=== PATIENT | male | born 1945 | race African-American/Black ===

== ENCOUNTER → 2018-02-14 | Outpatient (CLI) | payer MEDICARE | END | disposition home or self-care (01) | LOC: SPEC 12:03 | DX: S99.922D Unspecified injury of left foot, subsequent encounter (principal); X58.XXXD Exposure to other specified factors, subsequent encounter | CPT/HCPCS: 87071; 87075; 87186 ==

== ENCOUNTER → 2018-02-22 | Outpatient (CLI) | payer MEDICARE | END | disposition home or self-care (01) | LOC: PMGWOUND 08:53 | PROVIDERS: ATTEND Emergency Medicine Undersea and Hyperbaric Medicine | DX: I89.0 Lymphedema, not elsewhere classified (principal); M10.9 Gout, unspecified; E21.3 Hyperparathyroidism, unspecified; Z89.421 Acquired absence of other right toe(s); Z87.891 Personal history of nicotine dependence | CPT/HCPCS: 99214; G0463 ==

== ENCOUNTER → 2020-09-23 | Outpatient (CLI) | payer MEDICARE ==
[~2020-09-23] MED LIST: ACET500T68 PO; ALLO100T PO; AMLO-187 PO; ARIP15TA3 PO; ARIP20TA5 PO; ATOR10TA60 PO; DOXY-181 PO; FLUT16SP NS; LEVO5TAB2 PO; LINE100S2 PO; LISI-130 PO; MULT-121 PO; OXYC1TAB15 PO; TRIA15OI TP
--- NOTE | 2020-09-23 17:17 | RAD ---
EXAM: US VENOUS REFLUX. HISTORY: Nonhealing ulcer left ankle. COMPARISON: None. FINDINGS: Grayscale and Doppler analysis of the left lower extremity lesser and greater saphenous sys tems was performed. There is no reflux at the left greater saphenous vein. It measures 5 mm at the saphenofemoral junctio n. There is no reflux at the left lesser saphenous vein. IMPRESSION: 1. The lesser and greater saphenous systems demonstrate no reflux. Electronically signed by: La Patel MD (09/23/2020 5:15 PM) [id number]
== END ==
LOC: US 12:33
PROVIDERS: ATTEND Preventive Medicine Undersea and Hyperbaric Medicine
DX: I87.311 Chronic venous hypertension (idiopathic) with ulcer of right lower extremity (principal); L97.321 Non-pressure chronic ulcer of left ankle limited to breakdown of skin; I89.0 Lymphedema, not elsewhere classified; I10 Essential (primary) hypertension
CPT/HCPCS: 93970

== ENCOUNTER 2020-10-16 12:29 | Inpatient (IN) | payer MEDICARE ==
[~2020-10-16] VITALS: Ht 160 cm; Wt 81.7 kg
[2020-10-16] MEDS ORDERED: VANCOMYCIN PER PHARMACY MC ONE (14:15)
[2020-10-16] MEDS ORDERED: fentaNYL PF VIAL 100 MCG/2 ML VIAL IV PRN (14:15)
[2020-10-16] MEDS ORDERED: PIPERACILLIN/TAZOBACTAM 3.375 GM in IV NORMAL SALINE 50ML 50 ML IV ONE (14:15)
[2020-10-16] MEDS ORDERED: VANCOMYCIN 1.75 GM in IV NORMAL SALINE 500ML BAG 500 ML IV ONE (14:15)
[2020-10-16] MEDS ORDERED: PIPERACILLIN/TAZOBACTAM 4.5 GM in IV NORMAL SALINE 100ML 100 ML IV ONE (14:15)
[2020-10-16] MEDS ORDERED: IV NORMAL SALINE 1000ML BAG 1,000 ML IV ONE (14:15)
--- NOTE | 2020-10-16 14:53 | RAD ---
Left lower extremity venous duplex study Clinical History: Left lower extremity edema Technique: Using a combination of real time ultrasound imaging and color-flow and pulse Doppler imagi ng techniques, including spectral analysis, graded compression and augmentation, duplex evaluation of the deep venous system of the left lower extremity was performed. Multiple images were obtained. Findings: There is no sonographic evidence of deep venous thrombosis involving the visualized deep ve nous structures of the left lower extremity Impression: No evidence of deep venous thrombosis involving the left lower extremity Electronically signed by: Rainer Nicolas MD (10/16/2020 2:50 PM) [id number]
--- NOTE | 2020-10-16 15:31 | RAD ---
Left lower extremity arterial duplex ultrasound 10/16/2020 INDICATION: Left lower extremity wounds. Leg swelling. Comparisons: None. TECHNIQUE: Ultrasound evaluation of the major arteries of the left lower extremity was performed incl uding color Doppler imaging spectral analysis. Blunted monophasic waveforms are seen in left common f emoral artery. Velocities are mildly increased at 190 cm/s. Diffuse atherosclerotic vascular disease. Monophasic waveforms noted in the left superficial femoral artery, mildly elevated velocities throug hout. Monophasic waveforms noted velocities seen left popliteal artery. Monophasic waveforms noted in left anterior tibial, posterior tibial, peroneal arteries. Monophasic waveforms dorsalis pedis arter y. IMPRESSION: Diffuse monophasic waveforms with areas of increased velocity which are nonspecific. No major arterial occlusion below the level of the hip is identified on the left, but given monophasic w aveforms in the left common femoral artery, a hemodynamically significant aortoiliac stenosis may be present. Consider CT angiography for further characterization. Electronically signed by: Rainer Nicolas MD (10/16/2020 3:28 PM) [id number]
[2020-10-16 15:33] LABS: BASO % 1 % (0-3); EOS # 0.2 x10^3/uL (0.0-0.7); EOS % 4 % (0-3); HEMATOCRIT 39.8 % (39.0-53.0); HEMOGLOBIN 13.4 g/dL (13.0-17.5); LYMPH % 22 % (24-48); MEAN CORPUSCULAR HEMOGLOBIN 26 pg (25-35); MEAN CORPUSCULAR HGB CONC 34 g/dL (31-37); MEAN CORPUSCULAR VOLUME 78 fL (79-100); MONO # 0.4 x10^3/uL (0.0-1.1); MONO % 9 % (0-9); NEUT % 65 % (31-73); PLATELET COUNT 141 x10^3/uL (140-400); RED BLOOD COUNT 5.12 x10^6/uL (4.30-5.70); RED CELL DISTRIBUTION WIDTH 14.5 % (11.5-14.5); WHITE BLOOD COUNT 4.6 x10^3/uL (4.0-11.0)
[2020-10-16 15:43] LABS: CALCIUM 10.3 mg/dL (8.5-10.1); CREATININE 1.1 mg/dL (0.7-1.3); POTASSIUM 4.1 mmol/L (3.5-5.1)
[2020-10-16 16:00] LABS: ALBUMIN 2.9 g/dL (3.4-5.0); ALBUMIN/GLOBULIN RATIO 0.7 (1.0-1.7); C-REACTIVE PROTEIN 36.2 mg/L (0-3.3); TOTAL BILIRUBIN 0.2 mg/dL (0.2-1.0); TOTAL PROTEIN 6.8 g/dL (6.4-8.2)
[2020-10-16] MEDS ORDERED: CONTRAST GIVEN. MC PRN ×2 (16:15→16:30)
[2020-10-16] MEDS ORDERED: IOHEXOL 350 MG/ML 100 ML VIAL. IV ONE ×2 (16:15→16:30)
--- NOTE | 2020-10-16 17:04 | RAD ---
Exam: CT left lower extremity with contrast INDICATION: Left lower extremity swelling and redness TECHNIQUE: Sequential axial images through the left lower extremity obtained following the administra tion of 100 mL of Isovue-370 IV contrast. Sagittal and coronal reformatted images were reconstructed from the axial data and reviewed. 3-D reformatted images were reconstructed from the axial data and r eviewed. Exposure: One or more of the following in the visualized dose reduction techniques were utilized for this examination: 1. Automated exposure control 2. Adjustment of the MA and/or KV according to patient size 3. Use of iterative of reconstructive technique Comparisons: Ultrasound same day FINDINGS: Visualized intrapelvic structures are unremarkable. No suspicious osseous lesions or acute fractures. Left external iliac artery is patent. Left common femoral artery is patent. Left profunda artery is p atent. Left SFA is patent. Minimal plaque at the left popliteal artery which is patent. Anterior tibial, posterior tibial and pe roneal arteries into the level of the ankle without stenosis or plaque identified. There is skin thickening and edema involving the lower leg diffusely greatest at the level of the ank le. IMPRESSION: 1. No flow-limiting stenosis identified in the left lower extremity three-vessel runoff to the level of the ankle. 2. Diffuse soft tissue edema and skin thickening at the lower leg. Correlate for cellulitis Electronically signed by: Anand Hdez MD (10/16/2020 5:02 PM) [facility]
--- NOTE | 2020-10-16 17:56 | PHYS DOC ---
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 Patient states he has had cellulitis to the left lower extremity for 2 months. He states he was on Augmentin in September and recently used linezolid with no improvement. Patient states there is increased redness and swelling as well as weeping. Denies any fever, nausea vomiting. Review of Systems: Review of Systems: Constitutional: Denies fever or chills. [] Eyes: Denies change in visual acuity. [] HENT: Denies nasal congestion or sore throat. [] Respiratory: Denies cough or shortness of breath. [] Cardiovascular: Denies chest pain or edema. [] GI: Denies abdominal pain, nausea, vomiting, bloody stools or diarrhea. [] : Denies dysuria. [] Musculoskeletal: Denies back pain or joint pain. [] Integument: Reports worsening cellulitis of the left lower extremity Neurologic: Denies headache, focal weakness or sensory changes. [] Psychiatric: Denies depression or anxiety. [] Heart Score: C/O Chest Pain: N/A Risk Factors: Risk Factors: DM, Current or recent (<one month) smoker, HTN, HLP, family history of CAD, obesity. Risk Scores: Score 0 - 3: 2.5% MACE over next 6 weeks - Discharge Home Score 4 - 6: 20.3% MACE over next 6 weeks - Admit for Clinical Observation Score 7 - 10: 72.7% MACE over next 6 weeks - Early Invasive Strategies Current Medications: Current Medications Medications (Trade) Dose Ordered Sig/Yolie Start Time Stop Time Status Last Admin Dose Admin Fentanyl Citrate (Fentanyl 2ml Vial) 50 mcg PRN Q15MIN PRN 10/16/20 14:15 10/17/20 14:14 10/16/20 15:46 50 MCG Info (CONTRAST GIVEN -- Rx MONITORING) 1 each PRN DAILY PRN 10/16/20 16:30 10/18/20 16:29 Iohexol (Omnipaque 350 Mg/ml) 90 ml 1X ONCE 10/16/20 16:30 10/16/20 16:31 DC Piperacillin Sod/ Tazobactam Sod 3.375 gm/Sodium Chloride 50 ml @ 100 mls/hr 1X ONCE 10/16/20 14:15 10/16/20 14:44 DC 10/16/20 15:46 100 MLS/HR Piperacillin Sod/ Tazobactam Sod 4.5 gm/Sodium Chloride 100 ml @ 200 mls/hr 1X ONCE 10/16/20 14:15 10/16/20 14:44 UNV Sodium Chloride 1,000 ml @ 1,000 mls/hr 1X ONCE 10/16/20 14:15 10/16/20 15:14 DC 10/16/20 15:47 1,000 MLS/HR Vancomycin HCl (Vanco Per Pharmacy) 1 each 1X ONCE 10/16/20 14:15 10/16/20 14:16 DC Vancomycin HCl 1.75 gm/Sodium Chloride 500 ml @ 250 mls/hr 1X ONCE 10/16/20 14:15 10/16/20 16:14 DC 10/16/20 16:41 250 MLS/HR Allergies: Allergies: Allergies Coded Allergies Type Severity Reaction Last Updated Verified ibuprofen Allergy Unknown 10/16/20 Yes levofloxacin Allergy Unknown 10/16/20 Yes Physical Exam: PE: Constitutional: Well developed, well nourished, no acute distress, non-toxic appearance. [] HENT: Normocephalic, atraumatic, bilateral external ears normal, oropharynx moist, no oral exudates, nose normal. [] Eyes: PERRLA, EOMI, conjunctiva normal, no discharge. [] Neck: Normal range of motion, no tenderness, supple, no stridor. [] Cardiovascular:Heart rate regular rhythm, no murmur [] Lungs & Thorax: Bilateral breath sounds clear to auscultation [] Abdomen: Bowel sounds normal, soft, no tenderness, no masses, no pulsatile masses. [] Skin: Left lower extremity with chronic lymphedema type swelling, there is cellulitis from the luke to the ankle. The luke is weeping clear drainage. Back: No tenderness, no CVA tenderness. [] Extremities: No tenderness, no cyanosis, no clubbing, ROM intact, no edema. [] Neurologic: Alert and oriented X 3, normal motor function, normal sensory function, no focal deficits noted. [] Psychologic: Affect normal, judgement normal, mood normal. [] Current Patient Data: Labs: Laboratory Tests Test 10/16/20 14:35 10/16/20 15:15 SARS-CoV-2 Antigen (Rapid) Negative (NEGATIVE) White Blood Count 4.6 x10^3/uL (4.0-11.0) Red Blood Count 5.12 x10^6/uL (4.30-5.70) Hemoglobin 13.4 g/dL (13.0-17.5) Hematocrit 39.8 % (39.0-53.0) Mean Corpuscular Volume 78 fL (79-100) L Mean Corpuscular Hemoglobin 26 pg (25-35) Mean Corpuscular Hemoglobin Concent 34 g/dL (31-37) Red Cell Distribution Width 14.5 % (11.5-14.5) Platelet Count 141 x10^3/uL (140-400) Neutrophils (%) (Auto) 65 % (31-73) Lymphocytes (%) (Auto) 22 % (24-48) L Monocytes (%) (Auto) 9 % (0-9) Eosinophils (%) (Auto) 4 % (0-3) H Basophils (%) (Auto) 1 % (0-3) Neutrophils # (Auto) 3.0 x10^3/uL (1.8-7.7) Lymphocytes # (Auto) 1.0 x10^3/uL (1.0-4.8) Monocytes # (Auto) 0.4 x10^3/uL (0.0-1.1) Eosinophils # (Auto) 0.2 x10^3/uL (0.0-0.7) Basophils # (Auto) 0.0 x10^3/uL (0.0-0.2) Erythrocyte Sedimentation Rate 34 (0-15) H Sodium Level 145 mmol/L (136-145) Potassium Level 4.1 mmol/L (3.5-5.1) Chloride Level 110 mmol/L (98-107) H Carbon Dioxide Level 25 mmol/L (21-32) Anion Gap 10 (6-14) Blood Urea Nitrogen 25 mg/dL (8-26) Creatinine 1.1 mg/dL (0.7-1.3) Estimated GFR (Cockcroft-Gault) 79.0 BUN/Creatinine Ratio 23 (6-20) H Glucose Level 147 mg/dL (70-99) H Lactic Acid Level 2.7 mmol/L (0.4-2.0) H Calcium Level 10.3 mg/dL (8.5-10.1) H Total Bilirubin 0.2 mg/dL (0.2-1.0) Aspartate Amino Transferase (AST) 22 U/L (15-37) Alanine Aminotransferase (ALT) 39 U/L (16-63) Alkaline Phosphatase 83 U/L (46-116) C-Reactive Protein, Quantitative 36.2 mg/L (0-3.3) H Total Protein 6.8 g/dL (6.4-8.2) Albumin 2.9 g/dL (3.4-5.0) L Albumin/Globulin Ratio 0.7 (1.0-1.7) L Procalcitonin < 0.10 ng/mL (0.00-0.10) Laboratory Tests 10/16/20 15:15 Laboratory Tests 10/16/20 15:15 Vital Signs: Vital Signs Date Time Temp Pulse Resp B/P (MAP) Pulse Ox O2 Delivery O2 Flow Rate FiO2 10/16/20 15:46 16 98 Room Air 10/16/20 14:01 98.6 103 153/83 98.6 EKG: EKG: [] Radiology/Procedures: Radiology/Procedures: []PROCEDURE: DUPLEX LOWER EXT ARTERIAL LEFT Left lower extremity arterial duplex ultrasound 10/16/2020 INDICATION: Left lower extremity wounds. Leg swelling. Comparisons: None. TECHNIQUE: Ultrasound evaluation of the major arteries of the left lower extremity was performed including color Doppler imaging spectral analysis. Blunted monophasic waveforms are seen in left common femoral artery. Velocities are mildly increased at 190 cm/s. Diffuse atherosclerotic vascular disease. Monophasic waveforms noted in the left superficial femoral artery, mildly elevated velocities throughout. Monophasic waveforms noted velocities seen left popliteal artery. Monophasic waveforms noted in left anterior tibial, posterior tibial, peroneal arteries. Monophasic waveforms dorsalis pedis artery. IMPRESSION: Diffuse monophasic waveforms with areas of increased velocity which are nonspecific. No major arterial occlusion below the level of the hip is identified on the left, but given monophasic waveforms in the left common femoral artery, a hemodynamically significant aortoiliac stenosis may be present. Consider CT angiography for further characterization. Electronically signed by: Rainer Pitts MD (10/16/2020 3:28 PM) [id number] DICTATED and SIGNED BY: RAINER PITTS MD DATE: 10/16/20 [id number] 0 PROCEDURE: VENOUS LOWER EXTREMITY LEFT Left lower extremity venous duplex study Clinical History: Left lower extremity edema Technique: Using a combination of real time ultrasound imaging and color-flow and pulse Doppler imaging techniques, including spectral analysis, graded compression and augmentation, duplex evaluation of the deep venous system of the left lower extremity was performed. Multiple images were obtained. Findings: There is no sonographic evidence of deep venous thrombosis involving the visualized deep venous structures of the left lower extremity Impression: No evidence of deep venous thrombosis involving the left lower extremity Electronically signed by: Rianer Pitts MD (10/16/2020 2:50 PM) [id number] DICTATED and SIGNED BY: RAINER PITTS MD DATE: 10/16/20 [id number] 0 PROCEDURE: CT ANGIO LOWER EXTREMITY LEFT Exam: CT left lower extremity with contrast INDICATION: Left lower extremity swelling and redness TECHNIQUE: Sequential axial images through the left lower extremity obtained following the administration of 100 mL of Isovue-370 IV contrast. Sagittal and coronal reformatted images were reconstructed from the axial data and reviewed. 3-D reformatted images were reconstructed from the axial data and reviewed. Exposure: One or more of the following in the visualized dose reduction techniques were utilized for this examination: 1. Automated exposure control 2. Adjustment of the MA and/or KV according to patient size 3. Use of iterative of reconstructive technique Comparisons: Ultrasound same day FINDINGS: Visualized intrapelvic structures are unremarkable. No suspicious osseous lesions or acute fractures. Left external iliac artery is patent. Left common femoral artery is patent. Left profunda artery is patent. Left SFA is patent. Minimal plaque at the left popliteal artery which is patent. Anterior tibial, posterior tibial and peroneal arteries into the level of the ankle without stenosis or plaque identified. There is skin thickening and edema involving the lower leg diffusely greatest at the level of the ankle. IMPRESSION: 1. No flow-limiting stenosis identified in the left lower extremity three- vessel runoff to the level of the ankle. 2. Diffuse soft tissue edema and skin thickening at the lower leg. Correlate for cellulitis Electronically signed by: Anand Gaines MD (10/16/2020 5:02 PM) [facility] DICTATED and SIGNED BY: ANAND GAINES MD DATE: 10/16/20 [id number] 0 Course & Med Decision Making: Course & Med Decision Making Pertinent Labs and Imaging studies reviewed. (See chart for details) Patient is a 74-year-old male presenting to the ED today for worsening cellulitis to the left lower extremity. Patient was already on Augmentin last m onth as well as Zyvox. Tetanus is up-to-date CBC with a normal WBC, CMP with nothing acute. Sed rate 34, CRP 3 36.2. Lactic 2.7. Patient was given IV fluids in the ED, started on Zosyn and vancomycin. Spoke with Dr. Wilburn who accepted patient for admission Dragon Disclaimer: Alesha Disclaimer: This electronic medical record was generated, in whole or in part, using a voice recognition dictation system. Departure Departure Impression: Primary Impression: Left leg cellulitis Disposition: ADMITTED INPATIENT Condition: STABLE Referrals: YOSEF PUENTES MD (PCP) ROSIE GHOSH APRN Oct 16, 2020 17:56
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
[2020-10-16] MEDS ORDERED: fentaNYL PF VIAL 100 MCG/2 ML VIAL IVP PRN (18:45)
[2020-10-16] MEDS ORDERED: ACETAMINOPHEN 325 MG TABLET. PO PRN (18:45)
[2020-10-16] MEDS ORDERED: ONDANSETRON PF 4 MG/2 ML VIAL. IVP PRN (18:45)
[2020-10-16 20:45] VITALS: BP 127/85
[2020-10-16] MEDS ORDERED: IV 1/2 NORMAL SALINE 1,000 ML IV ONE (20:45)
[2020-10-16] MEDS ORDERED: ALBUTEROL SULFATE 2.5 MG/3 ML NEBU. NEB PRN (21:00)
[2020-10-16 23:00] VITALS: BP 142/70
[2020-10-16] MEDS: HEPARIN for SUB-Q USE 5,000 UNIT/ML VIAL. SQ SCH (23:05)
[2020-10-16] MEDS ORDERED: ATOR10TA60 PO (23:51)
[2020-10-16] MEDS ORDERED: LEVO5TAB2 PO (23:51)
[2020-10-16] MEDS ORDERED: LISI-130 PO (23:51)
[2020-10-16] MEDS ORDERED: ALLO100T PO (23:51)
[2020-10-16] MEDS ORDERED: ACET500T68 PO (23:51)
[2020-10-16] MEDS ORDERED: ARIP20TA5 PO (23:51)
[2020-10-16] MEDS ORDERED: AMLO-187 PO (23:51)
[2020-10-17] MEDS ORDERED: MULT-121 PO
[2020-10-17] MEDS ORDERED: DOXY-181 PO
[2020-10-17] MEDS ORDERED: TRIA15OI TP
[2020-10-17] MEDS ORDERED: OXYC1TAB15 PO
[2020-10-17] MEDS ORDERED: FLUT16SP NS
[2020-10-17] MEDS ORDERED: LINE100S2 PO
[2020-10-17 03:00] VITALS: BP 114/63
[2020-10-17] MEDS: HEPARIN for SUB-Q USE 5,000 UNIT/ML VIAL. SQ SCH ×3 (05:47→22:39)
[2020-10-17 07:00] VITALS: BP 147/71
[2020-10-17 07:51] LABS: BASO % 1 % (0-3); EOS # 0.2 x10^3/uL (0.0-0.7); EOS % 4 % (0-3); HEMATOCRIT 34.6 % (39.0-53.0); HEMOGLOBIN 11.7 g/dL (13.0-17.5); LYMPH # 0.8 x10^3/uL (1.0-4.8); LYMPH % 16 % (24-48); MEAN CORPUSCULAR HEMOGLOBIN 26 pg (25-35); MEAN CORPUSCULAR HGB CONC 34 g/dL (31-37); MEAN CORPUSCULAR VOLUME 77 fL (79-100); MONO # 0.5 x10^3/uL (0.0-1.1); MONO % 11 % (0-9); NEUT # 3.4 x10^3/uL (1.8-7.7); NEUT % 69 % (31-73); PLATELET COUNT 113 x10^3/uL (140-400); RED BLOOD COUNT 4.49 x10^6/uL (4.30-5.70); RED CELL DISTRIBUTION WIDTH 14.6 % (11.5-14.5); WHITE BLOOD COUNT 4.9 x10^3/uL (4.0-11.0)
[2020-10-17 08:04] LABS: CALCIUM 9.5 mg/dL (8.5-10.1); CREATININE 0.8 mg/dL (0.7-1.3); POTASSIUM 4.2 mmol/L (3.5-5.1)
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
[2020-10-17 11:00] VITALS: BP 139/72
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
[2020-10-17] MEDS: traMADol 50 MG TABLET PO PRN (13:18)
--- NOTE | 2020-10-17 13:28 | NUR ---
SS following for discharge planning. SS reviewed pt chart and discussed with pt RN. Pt is from home and is currently on room air. COVID19 negative. Wound care and ID consulted. PT/OT ordered. SS will continue to follow for discharge planning.
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
[2020-10-17 15:00] VITALS: BP 129/61
[2020-10-17] MEDS ORDERED: TRIAMCINOLONE ACETONIDE 0.1% TOPICAL OINTMENT 15GM TUBE. TP PRN (16:15)
[2020-10-17] MEDS ORDERED: oxyCODONE/APAP 5/325 1 TAB TABLET PO PRN (16:15)
[2020-10-17] MEDS ORDERED: ACETAMINOPHEN 500 MG TABLET PO PRN (16:15)
[2020-10-17] MEDS: ALLOPURINOL 100 MG TABLET. PO SCH (17:26)
[2020-10-17] MEDS: LISINOPRIL 20 MG TABLET PO SCH (17:26)
[2020-10-17 19:00] VITALS: BP 127/67
[2020-10-17] MEDS ORDERED: ARIPiprazole 5 MG TABLET PO SCH (21:00)
[2020-10-17] MEDS ORDERED: CETIRIZINE HCL 10 MG TABLET. PO SCH (21:00)
[2020-10-17] MEDS ORDERED: FLUTICASONE 50MCG/NASAL SPRAY 16GM BOTTLE. NS SCH (21:00)
[2020-10-17] MEDS: ATORVASTATIN CALCIUM 10 MG TABLET. PO SCH (22:28)
[2020-10-17 23:00] VITALS: BP 141/71
[2020-10-18] MEDS ORDERED: CETIRIZINE HCL 10 MG TABLET. PO PRN (01:15)
[2020-10-18] MEDS ORDERED: FLUTICASONE 50MCG/NASAL SPRAY 16GM BOTTLE. NS PRN (01:15)
[2020-10-18] MEDS ORDERED: ARIP15TA3 PO (01:19)
[2020-10-18 03:00] VITALS: BP 138/68
[2020-10-18] MEDS: HEPARIN for SUB-Q USE 5,000 UNIT/ML VIAL. SQ SCH ×3 (06:38→21:31)
[2020-10-18 07:00] VITALS: BP 132/64
[2020-10-18] MEDS: MULTIVITAMIN with MINERAL TABLET. PO SCH (09:04)
[2020-10-18] MEDS: LISINOPRIL 20 MG TABLET PO SCH (09:04)
[2020-10-18] MEDS: ALLOPURINOL 100 MG TABLET. PO SCH (09:05)
--- NOTE | 2020-10-18 10:30 | PDOC ---
Infectious Disease Note Subjective Subjective pt is feeling good, leakage has decreased ROS ROS no n/v/d/sob Vital Sign Vital Signs Vital Signs Date Time Temp Pulse Resp B/P (MAP) Pulse Ox O2 Delivery O2 Flow Rate FiO2 10/18/20 09:05 67 132/64 10/18/20 07:00 97.7 17 97 Room Air 97.7 10/17/20 07:00 Physical Exam PHYSICAL EXAM GENERAL: Alert, oriented gentleman, not in distress. VITAL SIGNS: Stable, afebrile. HEENT: NAD. NECK: Supple, no JVP, no lymphadenopathy. LUNGS: Clear. HEART: S1, S2 regular. ABDOMEN: Soft, nontender, no organomegaly. 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 Left lower extremity has extensive scar tissue into the thigh, knee and just below that and further below that the leg is almost like degloving with raw skin, but very clean red healthy granulation tissue all throughout the remaining leg. The patient does have what appears to be the chronic deformed and swollen toes like verruca lesions. It may have been just because of the chronic stasis, but it could be also possible that he may have mycetoma foot like appearance. NEUROLOGIC: The patient is alert, awake, and appropriate. No focal neurologic deficit. Labs Micro Microbiology 10/16/20 Blood Culture - Preliminary, Resulted NO GROWTH AFTER 1 DAY Objective Assessment IMPRESSION: Extensive superficial skin loss into the left leg, there are no signs of infection. I think it is all mechanical issue. There is no infection. The patient has venous insufficiency and scarring causing probably lymphatic compromise, hence continues to leak and leaking is not allowing him to heal. The patient needs to elevate the leg higher than the heart to be able to resolve this. Unfortunately, he cannot do it at home as he lives alone and he has to fetch for everything. I would recommend him going to the rehab, which he agrees. He stays in the rehab and his needs are taken care of and a constant leg elevation, he can walk, but no sitting except to eat and the rest of the time the leg should be above heart and that should allow him to stop leaking and that should heal his ulcers. The toe area with mycetoma look, the biopsy can be done to find out what really does not appear to be bacterial infection. The HPV like wart is possible versus fungal infection is possible, although just some again mechanical issue with the venous insufficiency and prolonged stasis. At this stage, I do not see the need for any antibiotics. The patient can be discharged and instead of just Kerlix, they should use Vaseline gauze on to the area to be able to avoid the new skin that Kerlix is taking away when it gets dry. Plan Plan of Care leg elevation no need for antibiotics ok to d/c to rehab GLORIA PAZ MD Oct 18, 2020 10:30
--- NOTE | 2020-10-18 10:49 | PDOC ---
[facility] PROGRESS NOTE Date of Service DOS: DATE: 10/18/20 TIME: 10:44 Chief Complaint Chief Complaint Left lower extremity cellulitis Lactic Acidosis Microcytosis Hypercalcemia Asthma Hyperlipidemia Hypertension Gout History of Present Illness History of Present Illness 10/17: Mr. Weiner was seen and evaluated in his room today. We discussed his disposition with his nurse and reviewed the patient's chart. 10/18: Mr. Weiner was examined and seen this morning in his room. We discussed is current disposition with his nurse and reviewed his chart. I discussed with Mr. Weiner that we are awaiting input from both Infectious Disease and Wound Care. Vitals/I&O Vitals/I&O: Vital Signs Date Time Temp Pulse Resp B/P (MAP) Pulse Ox O2 Delivery O2 Flow Rate FiO2 10/18/20 09:05 67 132/64 10/18/20 08:05 Room Air 10/18/20 07:00 97.7 17 97 97.7 10/17/20 07:00 I & O 10/17/20 10/17/20 10/18/20 15:00 23:00 07:00 Intake Total 0 ml 0 ml Output Total 250 ml Balance -250 ml 0 ml 0 ml Physical Exam Physical Exam: GENERAL: Alert, oriented gentleman, not in distress. VITAL SIGNS: Stable, afebrile. HEENT: NAD. NECK: Supple, no JVP, no lymphadenopathy. LUNGS: Clear. HEART: S1, S2 regular. ABDOMEN: Soft, nontender, no organomegaly. 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 Left lower extremity has extensive scar tissue into the thigh, knee and just below that and further below that the leg is almost like degloving with raw skin, but very clean red healthy granulation tissue all throughout the remaining leg. The patient does have what appears to be the chronic deformed and swollen toes like verruca lesions. It may have been just because of the chronic stasis, but it could be also possible that he may have mycetoma foot like appearance. NEUROLOGIC: The patient is alert, awake, and appropriate. No focal neurologic deficit. General: Alert, Oriented X3, Cooperative, mild distress Heart: Regular rate, No murmurs Lungs: Clear Abdomen: Normal bowel sounds, No tenderness, No hepatosplenomegaly, No masses Extremities: No clubbing, Other (Edema left lower extremity contusion. Extensive vásquez to of her left leg and weepiness: Lower extremity from mid calf to ankle. Right PCN site fungating weeping of serous fluid.) Review of Systems Review of Systems: No Headache No Fever Assessment and Plan Assessmemt and Plan Problems Medical Problems: (1) Left leg cellulitis Status: Acute Assessment: 1. Left lower extremity cellulitis 2. Lactic Acidosis 3. Microcytosis 4. Hypercalcemia 5. Asthma 6. Hyperlipidemia 7. Hypertension 8. Gout Plan 1. Await input from Infectious Disease and Wound Care 2. FEN - Regular Diet 3. Continue DVT Prophylaxis (Heparin) 4. Full Code 5. Continue Wound Care 6. Keep Foot Elevated Comment Review of Relevant I have reviewed the following items cholo (where applicable) has been applied. Medications: Current Medications Medications (Trade) Dose Ordered Sig/Yolie Route PRN Reason Start Time Stop Time Status Last Admin Dose Admin Allopurinol (Zyloprim) 200 mg DAILY PO 10/17/20 17:00 10/18/20 09:05 Amlodipine Besylate (Norvasc) 10 mg DAILY PO 10/17/20 17:00 10/18/20 09:05 Atorvastatin Calcium (Lipitor) 10 mg QHS PO 10/17/20 21:00 10/17/20 22:28 Lisinopril (Prinivil) 40 mg DAILY PO 10/17/20 17:00 10/18/20 09:04 Aripiprazole (Abilify) 20 mg QHS PO 10/17/20 21:00 10/18/20 01:21 DC 10/17/20 22:28 Multivitamins (Thera M Plus) 1 tab DAILY PO 10/18/20 09:00 10/18/20 09:04 Justifications for Admission Other Justification BRIGIDO GU III DO Oct 18, 2020 10:49
[2020-10-18 11:00] VITALS: BP 134/63
[2020-10-18 15:00] VITALS: BP 134/60
[2020-10-18 19:00] VITALS: BP 138/63
[2020-10-18] MEDS: ATORVASTATIN CALCIUM 10 MG TABLET. PO SCH (21:24)
[2020-10-18] MEDS: ARIPiprazole 5 MG TABLET PO SCH (21:25)
[2020-10-18 23:00] VITALS: BP 121/60
[2020-10-19 03:00] VITALS: BP 120/60
[2020-10-19] MEDS: HEPARIN for SUB-Q USE 5,000 UNIT/ML VIAL. SQ SCH ×3 (06:20→20:47)
[2020-10-19 07:00] VITALS: BP 128/69
[2020-10-19] MEDS: MULTIVITAMIN with MINERAL TABLET. PO SCH (09:26)
[2020-10-19] MEDS: ALLOPURINOL 100 MG TABLET. PO SCH (09:26)
[2020-10-19] MEDS: LISINOPRIL 20 MG TABLET PO SCH (09:26)
[2020-10-19 11:34] VITALS: BP 110/56
--- NOTE | 2020-10-19 13:00 | PDOC ---
Infectious Disease Note Subjective Subjective pt is feeling good, leakage has decreased ROS ROS no n/v/d/sob Vital Sign Vital Signs Vital Signs Date Time Temp Pulse Resp B/P (MAP) Pulse Ox O2 Delivery O2 Flow Rate FiO2 10/19/20 11:34 98.3 71 20 110/56 (74) 99 Room Air 98.3 Physical Exam PHYSICAL EXAM GENERAL: Alert, oriented gentleman, not in distress. VITAL SIGNS: Stable, afebrile. HEENT: NAD. NECK: Supple, no JVP, no lymphadenopathy. LUNGS: Clear. HEART: S1, S2 regular. ABDOMEN: Soft, nontender, no organomegaly. 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 Left lower extremity has extensive scar tissue into the thigh, knee and just below that and further below that the leg is almost like degloving with raw skin, but very clean red healthy granulation tissue all throughout the remaining leg. The patient does have what appears to be the chronic deformed and swollen toes like verruca lesions. It may have been just because of the chronic stasis, but it could be also possible that he may have mycetoma foot like appearance. NEUROLOGIC: The patient is alert, awake, and appropriate. No focal neurologic deficit. Labs Micro Microbiology 10/16/20 Blood Culture - Preliminary, Resulted NO GROWTH AFTER 1 DAY Objective Assessment IMPRESSION: Extensive superficial skin loss into the left leg, there are no signs of infection. I think it is all mechanical issue. There is no infection. The patient has venous insufficiency and scarring causing probably lymphatic compromise, hence continues to leak and leaking is not allowing him to heal. The patient needs to elevate the leg higher than the heart to be able to resolve this. Unfortunately, he cannot do it at home as he lives alone and he has to fetch for everything. I would recommend him going to the rehab, which he agrees. He stays in the rehab and his needs are taken care of and a constant leg elevation, he can walk, but no sitting except to eat and the rest of the time the leg should be above heart and that should allow him to stop leaking and that should heal his ulcers. The toe area with mycetoma look, the biopsy can be done to find out what really does not appear to be bacterial infection. The HPV like wart is possible versus fungal infection is possible, although just some again mechanical issue with the venous insufficiency and prolonged stasis. Plan Plan of Care leg elevation I do not see the need for any antibiotics. The patient can be discharged and instead of just Kerlix, they should use Vaseline gauze on to the area to be able to avoid the new skin that Kerlix is taking away when it gets dry. GLORIA PAZ MD Oct 19, 2020 13:00
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
[2020-10-19 15:00] VITALS: BP 140/59
[2020-10-19 19:00] VITALS: BP 104/48
[2020-10-19] MEDS: ARIPiprazole 5 MG TABLET PO SCH (20:46)
[2020-10-19] MEDS: ATORVASTATIN CALCIUM 10 MG TABLET. PO SCH (20:47)
[2020-10-19 23:00] VITALS: BP 119/56
[2020-10-19] MEDS: traMADol 50 MG TABLET PO PRN (23:04)
[2020-10-20 03:00] VITALS: BP 103/55
[2020-10-20] MEDS: HEPARIN for SUB-Q USE 5,000 UNIT/ML VIAL. SQ SCH ×2 (05:35→13:32)
[2020-10-20 07:00] VITALS: BP 131/66
[2020-10-20] MEDS: ALLOPURINOL 100 MG TABLET. PO SCH (09:27)
[2020-10-20] MEDS: LISINOPRIL 20 MG TABLET PO SCH (09:27)
[2020-10-20] MEDS: MULTIVITAMIN with MINERAL TABLET. PO SCH (09:27)
[2020-10-20 11:00] VITALS: BP 136/75
[2020-10-20] MEDS ORDERED: OXYC1TAB15 PO (11:07)
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
--- NOTE | 2020-10-20 13:15 | PDOC ---
Infectious Disease Note Subjective Subjective pt is feeling good, leakage has decreased Vital Sign Vital Signs Vital Signs Date Time Temp Pulse Resp B/P (MAP) Pulse Ox O2 Delivery O2 Flow Rate FiO2 10/20/20 11:00 97.8 75 18 136/75 (95) 95 97.8 10/20/20 08:00 Room Air 10/19/20 19:00 3.0 Physical Exam PHYSICAL EXAM GENERAL: Alert, oriented gentleman, not in distress. VITAL SIGNS: Stable, afebrile. HEENT: NAD. NECK: Supple, no JVP, no lymphadenopathy. LUNGS: Clear. HEART: S1, S2 regular. ABDOMEN: Soft, nontender, no organomegaly. 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 Left lower extremity has extensive scar tissue into the thigh, knee and just below that and further below that the leg is almost like degloving with raw skin, but very clean red healthy granulation tissue all throughout the remaining leg. The patient does have what appears to be the chronic deformed and swollen toes like verruca lesions. It may have been just because of the chronic stasis, but it could be also possible that he may have mycetoma foot like appearance. NEUROLOGIC: The patient is alert, awake, and appropriate. No focal neurologic deficit. Labs Lab Laboratory Tests Test 10/20/20 07:34 Glucose (Fingerstick) 93 mg/dL (70-99) Micro Microbiology 10/16/20 Blood Culture - Preliminary, Resulted NO GROWTH AFTER 1 DAY Objective Assessment IMPRESSION: Extensive superficial skin loss into the left leg, there are no signs of infection. I think it is all mechanical issue. There is no infection. The patient has venous insufficiency and scarring causing probably lymphatic compromise, hence continues to leak and leaking is not allowing him to heal. The patient needs to elevate the leg higher than the heart to be able to resolve this. Unfortunately, he cannot do it at home as he lives alone and he has to fetch for everything. I would recommend him going to the rehab, which he agrees. He stays in the rehab and his needs are taken care of and a constant leg elevation, he can walk, but no sitting except to eat and the rest of the time the leg should be above heart and that should allow him to stop leaking and that should heal his ulcers. The toe area with mycetoma look, the biopsy can be done to find out what really does not appear to be bacterial infection. The HPV like wart is possible versus fungal infection is possible, although just some again mechanical issue with the venous insufficiency and prolonged stasis. Plan Plan of Care Monitor off antibiotics Leg elevation Cont local care GLORIA PAZ MD Oct 20, 2020 13:15
--- NOTE | 2020-10-20 16:40 | NUR ---
Discharge Note: ANN PHELAN [address] [place] [address] Discharge instructions and discharge home medications reviewed with Patient and a copy given. All questions have been answered and understanding verbalized. The following instructions and handouts were given: f/u with pcp within two weeks. Continue to go to [facility] wound care as scheduled Discontinued lines and drains: Peripheral IV intact. Patient discharged to Home w/services with Self via Wheelchair by [employer].
== END 2020-10-20 16:40 | disposition home health service (06) | DRG 603 ==
LOC: ER 12:29 → 5 SOUTH 19:01 → ED HOLD 19:01 → 5 SOUTH 20:27
PROVIDERS: ADMIT Internal Medicine; ATTEND Internal Medicine
DX: L03.116 Cellulitis of left lower limb (principal); E87.2 Acidosis; E20.9 Hypoparathyroidism, unspecified; E61.1 Iron deficiency; E78.00 Pure hypercholesterolemia, unspecified; E78.5 Hyperlipidemia, unspecified; E83.52 Hypercalcemia; I10 Essential (primary) hypertension; I87.2 Venous insufficiency (chronic) (peripheral); J45.909 Unspecified asthma, uncomplicated; M10.9 Gout, unspecified; Z20.822 Contact with and (suspected) exposure to COVID-19; Z82.49 Family history of ischemic heart disease and other diseases of the circulatory system; Z89.611 Acquired absence of right leg above knee; Z88.6 Allergy status to analgesic agent; Z88.1 Allergy status to other antibiotic agents
CPT/HCPCS: 36415; 73706; 80048; 80053; 82306; 82962; 83540; 83550; 83605; 84100; 84145; 85025; 85651; 86140; 87040; 87426; 93926; 93971; 96365; 96368; 96375; J1644; J2543; J3010; J3370; J3490; J7030; J7040; Q9967; U0003; U0005; 97110-GO; 97530-GP; 99285-25; G0378